=== PATIENT | male | born 1975 | race African-American/Black ===

== ENCOUNTER 2020-02-03 14:47 | Emergency (ER) | payer MEDICARE, OTHER ==
[~2020-02-03] VITALS: Ht 193 cm; Wt 0.5 kg
[2020-02-03 15:04] VITALS: BP 125/72
[2020-02-03] MEDS ORDERED: ACETAMINOPHEN 325 MG TAB PO ONE (15:30)
== END 2020-02-03 16:18 ==
LOC: ER 14:47 → MERGE 14:47 → ER 16:18
DX: S39.012A Strain of muscle, fascia and tendon of lower back, initial encounter (principal); X58.XXXA Exposure to other specified factors, initial encounter; Y93.89 Activity, other specified; Y92.89 Other specified places as the place of occurrence of the external cause; Y99.8 Other external cause status
CPT/HCPCS: 72100